=== PATIENT | male | born 1965 | race Caucasian/White ===

== ENCOUNTER 2019-02-07 14:46 | Observation (INO) | payer BC ==
[~2019-02-07] VITALS: Ht 182.9 cm; Wt 107.1 kg
[2019-02-07] MEDS ORDERED: LOSA25TA14 PO (15:03)
[2019-02-07 15:43] LABS: HEMATOCRIT 39.9 % (42.0-52.0); HEMOGLOBIN 13.9 g/dl (13.5-17.5); MEAN CORPUSCULAR HEMOGLOBIN 33.1 pg (27.0-33.0); MEAN CORPUSCULAR HGB CONC 34.8 g/dl (32.0-36.5); PLATELET COUNT, AUTOMATED 204 10^3/uL (150-450); WHITE BLOOD COUNT 10.3 10^3/uL (4.0-10.0)
[2019-02-07 16:00] LABS: BLOOD UREA NITROGEN 14 MG/DL (7-18); CALCIUM LEVEL 8.8 MG/DL (8.5-10.1); CARBON DIOXIDE LEVEL 29 MEQ/L (21-32); CHLORIDE LEVEL 102 MEQ/L (98-107); CREATININE FOR GFR 0.84 MG/DL (0.70-1.30); GLOMERULAR FILTRATION RATE > 60.0 (>56); GLUCOSE, FASTING 106 MG/DL (70-100); POTASSIUM SERUM 3.9 MEQ/L (3.5-5.1); SODIUM LEVEL 138 MEQ/L (136-145)
[2019-02-07] MEDS ORDERED: IBUP200C29 PO (16:28)
[2019-02-07] MEDS ORDERED: EXCETAB22 PO (16:28)
[2019-02-07] MEDS ORDERED: AMPICILLIN SOD/SULBACTAM SOD 3 GM in D5W MINI-BAG PLUS 100 ML IV ONE (16:30)
--- NOTE | 2019-02-07 17:59 | HPEPDOC ---
General Date of Admission Feb 07, 2019 at 14:47 Date of Service: Feb 07, 2019 Chief Complaint The patient is a 53-year-old male admitted with a reason for visit of Dental Abscess. Source: Patient Exam Limitations: No limitations Timing/Duration: Day(s) Severity: Moderate Associated Symptoms: Fever, Other (Facial swelling) History of Present Illness 53 year old male with onset of fever, pain and left facial swelling after dental work. Was placed on oral antibiotics at outlying facility--does not recall name. Woke up today with soaking sweats. Has not been able to eat solid food but reports ample fluids. Denies oral drainage or bleeding. Home Medications Scheduled Losartan Potassium (Losartan Potassium) 25 Mg Tablet, 25 MG PO DAILY, (Reported) Scheduled PRN Aspirin/Acetaminophen/Caffeine (Excedrin Migraine Geltab) 1 Each Tablet, 1 TAB PO BID PRN for MIGRAINE, (Reported) Ibuprofen (Ibuprofen) 200 Mg Capsule, 800 MG PO QID PRN for PAIN, (Reported) Allergies Coded Allergies: No Known Allergies (Unverified , 02/07/19) Past Medical History Medical History Essential hypertension; prior dental abscess Surgical History Denies Family History Significant Family History: Diabetes, Vascular disease Social History * Smoker: Denies Alcohol: occationally Drugs: denies Psychosocial History: No pertinent psych hx Works for [employer]. A-FIB/CHADSVASC A-FIB History Current/History of A-Fib/PAF?: No Current PO Anticoag Therapy: No Review of Systems Other systems 10 system review is otherwise negative except as stated in HPI. Physical Examination General Exam: Positive: Alert, Cooperative, Mild Distress Eye Exam: Positive: PERRLA, Conjunctiva & lids normal, EOMI ENT Exam: Positive: Atraumatic, Mucous membr. moist/pink, Other ENT (mildly tender left facial sweling and adenopathy, no oral drainage site) Neck Exam: Positive: Supple, Lymphadenopathy; Negative: JVD, thyromegaly Chest Exam: Positive: Clear to auscultation, Normal air movement Heart Exam: Positive: Rate Normal, Regular Rhythm Telemetry: Positive: Sinus Abdomen Exam: Positive: Normal bowel sounds, BS Hyperactive Extremity Exam: Positive: Normal pulses; Negative: Clubbing, Cyanosis, Edema Skin Exam: Positive: Nl turgor and temperature; Negative: Breakdown, Lesion Neuro Exam: Positive: Normal Gait, Normal Speech, Cranial Nerves 3-12 NL, Reflexes 2+ Psych Exam: Positive: Mental status NL, Mood NL Vital Signs Vital Signs Date Time Temp Pulse Resp B/P (MAP) Pulse Ox O2 Delivery O2 Flow Rate FiO2 02/07/19 15:00 02/07/19 14:47 97.9 85 16 98 Room Air Laboratory Data Labs 24H Laboratory Tests 2 02/07/19 15:30: Nucleated Red Blood Cells % (auto) 0.0, Anion Gap 7L, Glomerular Filtration Rate > 60.0, Calcium Level 8.8 CBC/BMP Laboratory Tests 02/07/19 15:30 Microbiology Microbiology 02/07/19 Blood Culture, Received Pending 02/07/19 Blood Culture, Received Pending Assessment/Plan Dental Abscess Being placed on empiric antibiotic in the form of IV Unasyn. Expectant of further eval by oral surgery service. Blood cultures obtained. Plan / VTE VTE Prophylaxis Ordered?: Yes (Lovenox) Plan Diet: Continue Current Medications: Start Antibiotics Diagnostics: Repeat Labs in AM Anticipated Discharge: Home AGUEDA FISHER MD Feb 07, 2019 17:59
[2019-02-07] MEDS ORDERED: PERCOCET 5MG/325MG TAB PO PRN (18:00)
[2019-02-07 18:57] VITALS: BP 153/95
[2019-02-07] MEDS: ACETAMINOPHEN TAB 650MG DOSE (2X325MG) PO PRN (19:41)
[2019-02-07] MEDS ORDERED: ENOXAPARIN 40 MG/0.4 ML SYRINGE (J1650) SC SCH (21:00)
[2019-02-07 22:00] VITALS: BP 134/80
[2019-02-07] MEDS: AMPICILLIN SOD/SULBACTAM SOD 3 GM in D5W MINI-BAG PLUS 100 ML IV SCH (22:04)
[2019-02-08] MEDS: AMPICILLIN SOD/SULBACTAM SOD 3 GM in D5W MINI-BAG PLUS 100 ML IV SCH ×3 (04:03→15:42)
[2019-02-08] MEDS: ACETAMINOPHEN TAB 650MG DOSE (2X325MG) PO PRN ×3 (04:04→18:30)
[2019-02-08 06:00] VITALS: BP 125/82
[2019-02-08 06:33] LABS: HEMATOCRIT 36.6 % (42.0-52.0); HEMOGLOBIN 12.7 g/dl (13.5-17.5); MEAN CORPUSCULAR HEMOGLOBIN 32.7 pg (27.0-33.0); MEAN CORPUSCULAR HGB CONC 34.7 g/dl (32.0-36.5); MEAN CORPUSCULAR VOLUME 94.3 fl (80.0-96.0); PLATELET COUNT, AUTOMATED 200 10^3/uL (150-450); RED BLOOD COUNT 3.88 10^6/uL (4.30-6.10); WHITE BLOOD COUNT 10.4 10^3/uL (4.0-10.0)
[2019-02-08 06:51] LABS: BLOOD UREA NITROGEN 14 MG/DL (7-18); CALCIUM LEVEL 8.7 MG/DL (8.5-10.1); CARBON DIOXIDE LEVEL 29 MEQ/L (21-32); CHLORIDE LEVEL 100 MEQ/L (98-107); CREATININE FOR GFR 0.86 MG/DL (0.70-1.30); GLOMERULAR FILTRATION RATE > 60.0 (>56); GLUCOSE, FASTING 111 MG/DL (70-100); POTASSIUM SERUM 3.6 MEQ/L (3.5-5.1); SODIUM LEVEL 135 MEQ/L (136-145)
[2019-02-08] MEDS ORDERED: LOSARTAN 25 MG TAB PO SCH (09:00)
[2019-02-08 09:17] VITALS: BP 125/82
[2019-02-08 14:00] VITALS: BP 124/80
--- NOTE | 2019-02-08 20:57 | DS.PDOC ---
Discharge Summary General Date of Admission Feb 07, 2019 at 14:47 Date of Discharge February 08, 2019 Specialist/Consultants Involve: MINE KANG DMD Discharge Summary PROCEDURES PERFORMED DURING STAY: [None]. ADMITTING DIAGNOSES: 1. [dental abscess]. DISCHARGE DIAGNOSES: dental abscess; essential hypertension COMPLICATIONS/CHIEF COMPLAINT: Dental Abscess. HISTORY OF PRESENT ILLNESS/HOSPITAL COURSE: [53 year old male with onset of fever, pain and left facial swelling after dental work. Was placed on oral antibiotics at outlying facility--does not recall name. Woke up with soaking sweats. Had not been able to eat solid food but reported ample fluids. Denied oral drainage or bleeding. Was placed on IV antibiotics in the form of Unasyn. Facial swelling and pain resolved significantly. Tolerating a soft diet. Able to transition back to oral antibiotics]. DISCHARGE MEDICATIONS: Please see below. ALLERGIES: Please see below. PHYSICAL EXAMINATION ON DISCHARGE: VITAL SIGNS: Please see below. GENERAL: [ambulatory and verbal] HEENT: [neck is supple, left neck tenderness resolved, minimal tender adenopathy, no oral drainage CARDIOVASCULAR EXAMINATION: [RRR] RESPIRATORY EXAMINATION: [CTA] ABDOMINAL EXAMINATION: [nontender, moderate central obesity] EXTREMITIES: [no pedal edema] LABORATORY DATA: Please see below. IMAGING: PROGNOSIS: ACTIVITY: [As tolerated]. DIET: [Soft, then advance as tolerated] DISCHARGE PLAN: [Follow up with oral surgeon Dr. Kang as arranged.] DISPOSITION: 01 Home, Self-Care. DISCHARGE INSTRUCTIONS: 1. . ITEMS TO FOLLOWUP ON ON OUTPATIENT: 1. . DISCHARGE CONDITION: [Stable]. TIME SPENT ON DISCHARGE: [35] minutes. Vital Signs/I&Os Vital Signs Date Time Temp Pulse Resp B/P (MAP) Pulse Ox O2 Delivery O2 Flow Rate FiO2 02/08/19 14:00 98.9 79 18 124/80 (95) 96 02/08/19 06:00 Room Air I&O- Last 24 Hours up to 6 AM 02/08/19 05:59 Intake Total 1220 ml Output Total 0 ml Balance 1220 ml Laboratory Data Labs 24H Laboratory Tests 2 02/08/19 06:08: Nucleated Red Blood Cells % (auto) 0.0, Anion Gap 6L, Glomerular Filtration Rate > 60.0, Calcium Level 8.7 CBC/BMP Laboratory Tests 02/08/19 06:08 Microbiology Microbiology 02/07/19 Blood Culture - Preliminary, Resulted No growth after 24 hours . All specim... 02/07/19 Blood Culture - Preliminary, Resulted No growth after 24 hours . All specim... Discharge Medications Scheduled Losartan Potassium (Losartan Potassium) 25 Mg Tablet, 25 MG PO DAILY, (Reported) Scheduled PRN Aspirin/Acetaminophen/Caffeine (Excedrin Migraine Geltab) 1 Each Tablet, 1 TAB PO BID PRN for MIGRAINE, (Reported) Ibuprofen (Ibuprofen) 200 Mg Capsule, 800 MG PO QID PRN for PAIN, (Reported) Allergies Coded Allergies: No Known Allergies (Unverified , 02/07/19) AGUEDA FISHER MD Feb 08, 2019 20:57
== END 2019-02-08 19:04 | disposition home or self-care (01) ==
LOC: M ED 14:46 → M ED INP 14:47 → M MS5PR 18:35
PROVIDERS: ADMIT Internal Medicine; ATTEND Internal Medicine
DX: K12.2 Cellulitis and abscess of mouth (principal); R22.1 Localized swelling, mass and lump, neck; R50.9 Fever, unspecified; R13.10 Dysphagia, unspecified; I10 Essential (primary) hypertension; Z79.899 Other long term (current) drug therapy

== ENCOUNTER → 2020-06-22 | Outpatient (REF) | payer BC ==
[~2020-06-22] MED LIST: EXCETAB22 PO; IBUP200C29 PO; LOSA25TA14 PO
[2020-06-24 04:07] LABS: LDL DIRECT 105 mg/dL (0-99)
== END ==
LOC: M LAB REF 12:22
PROVIDERS: ATTEND Physician Assistant Medical
DX: E78.5 Hyperlipidemia, unspecified (principal)

== ENCOUNTER → 2020-09-16 | Outpatient (CLI) | payer BC | LOC: M LABSMTC 11:05 | PROVIDERS: ATTEND Anesthesiology | DX: Z01.818 Encounter for other preprocedural examination (principal); Z11.52 Encounter for screening for COVID-19 ==

== ENCOUNTER 2020-09-21 11:25 | Day surgery (SDC) | payer BC ==
[~2020-09-21] VITALS: Ht 182.9 cm; Wt 108.4 kg
[~2020-09-21 11:25] MED LIST changes: +NS 1,000 ML IV ONE
[2020-09-21] MEDS ORDERED: propofoL 200 MG/20 ML VIAL As Ordered ONE (13:04)
[2020-09-21] MEDS ORDERED: LIDOCAINE 2% 100MG/5ML SDV (FOR ANES.) As Ordered ONE (13:04)
--- NOTE | 2020-09-21 13:41 | ROOR ---
Patient Name: Olvin Caldwell Procedure Date: 09/21/2020 1:26 PM Date of : 1965 Age: 55 Room: [facility], [facility]IN [facility] Gender: Male Note Status: Finalized Procedure: Total Colonoscopy to Cecum Indications: Screening for colorectal malignant neoplasm Providers: Yehuda Navarro MD Referring MD: Deb Lawrence NP Requesting Provider: Medicines: Monitored Anesthesia Care Complications: No immediate complications. Procedure: Pre-Anesthesia Assessment: - The heart rate, respiratory rate, oxygen saturations, blood pressure, adequacy of pulmonary ventilation, and response to care were monitored throughout the procedure. The Colonoscope was introduced through the anus and advanced to the cecum, identified by appendiceal orifice and ileocecal valve. The colonoscopy was performed without difficulty. The patient tolerated the procedure well. The quality of the bowel preparation was good. Findings: The perianal and digital rectal examinations were normal. Non-bleeding internal hemorrhoids were found during retroflexion. The hemorrhoids were small and Grade I (internal hemorrhoids that do not prolapse). No other significant abnormalities were identified in a careful examination of the remainder of the colon. The exam was otherwise without abnormality on direct and retroflexion views. Impression: - Non-bleeding internal hemorrhoids. - The examination was otherwise normal on direct and retroflexion views. - No specimens collected. - The exam was otherwise normal to the cecum. Recommendation: - Patient has a contact number available for emergencies. The signs and symptoms of potential delayed complications were discussed with the patient. Return to normal activities tomorrow. Written discharge instructions were provided to the patient. - High fiber diet. - Discharge patient to home. - Continue present medications. - Repeat colonoscopy in 10 years for screening purposes. - Return to referring physician. - The findings and recommendations were discussed with the patient's family. Procedure Code(s): --- Professional --- 13796, Colonoscopy, flexible; diagnostic, including collection of specimen(s) by brushing or washing, when performed (separate procedure) Diagnosis Code(s): --- Professional --- Z12.11, Encounter for screening for malignant neoplasm of colon K64.0, First degree hemorrhoids CPT copyright 2019 [employer]. All rights reserved. The codes documented in this report are preliminary and upon returned case inspector review may be revised to meet current compliance requirements. Yehuda Navarro MD Yehuda Nvaarro MD 09/21/2020 1:40:45 PM Electronically signed by Yehuda Navarro MD Number of Addenda: 0 Note Initiated On: 09/21/2020 1:26 PM Estimated Blood Loss: Estimated blood loss: none.
[2020-09-21 14:15] VITALS: BP 122/84
== END 2020-09-21 14:16 | disposition home or self-care (01) ==
LOC: M OPP 11:25
PROVIDERS: ATTEND Internal Medicine Gastroenterology
DX: Z12.11 Encounter for screening for malignant neoplasm of colon (principal); K64.0 First degree hemorrhoids; I10 Essential (primary) hypertension; G43.909 Migraine, unspecified, not intractable, without status migrainosus; Z79.899 Other long term (current) drug therapy

== ENCOUNTER → 2024-12-29 | Outpatient (REF) | payer BC ==
[~2024-12-29] MED LIST changes: +LOSA25TA13 PO; -LOSA25TA14 PO; -NS 1,000 ML IV ONE
== END ==
LOC: M LAB REF 09:06
PROVIDERS: ATTEND Physician Assistant
DX: B34.9 Viral infection, unspecified (principal)